=== PATIENT | male | born 1950 ===

== ENCOUNTER 2018-03-22 08:04 | Day surgery (SDC) | payer MEDICARE ==
[2018-03-20 11:54] VITALS: BMI 29.5
[2018-03-22 09:20] VITALS: RESP 20
[2018-03-22] MEDS ORDERED: Propofol 10 mg/ml Inj (20 ML) ONE (14:49)
[2018-03-22] MEDS ORDERED: Midazolam 2 MG/2 ML VIAL ONE ×3 (14:49→15:17)
[2018-03-22] MEDS ORDERED: HYDROmorphone 0.5 mg/0.5 ml ISec IVP PRN (15:31)
[2018-03-22] MEDS ORDERED: Oxycodone/Acetaminophen 5/325 mg Tab PO PRN (15:35)
[2018-03-22] MEDS ORDERED: Sodium Chloride 0.9% 1,000 ML IV SCH (15:45)
[2018-03-22] MEDS ORDERED: Gentamicin IV 80mg/50ml NS(PREMIX) IVPB ONE (16:30)
[2018-03-22 17:30] VITALS: BP 145/87; PULSE 81; TEMP 97.6; O2SAT 94
--- NOTE | 2018-05-01 09:18 | PN ---
DATE: 03/22/2018 IMMEDIATE POSTOP NOTE PREOPERATIVE DIAGNOSES: Elevated prostate surface antigen, voiding dysfunction, nocturia, irritative and obstructive complaints. POSTOPERATIVE DIAGNOSES: Elevated prostate surface antigen, voiding dysfunction, nocturia, irritative and obstructive complaints. PROCEDURE: Ultrasound of the prostate and guided biopsy. The patient is currently in the Recovery Room in stable condition. There were no complications. Blood loss was noted, minimal. The patient tolerated the procedure without complication. The plan is outpatient followup and office visit, on antibiotic use. . Kristopher Angel MD
--- NOTE | 2018-05-01 18:44 | HP ---
UROLOGY ADMISSION HISTORY AND PHYSICAL ASON FOR ADMISSION: Elevated PSA and voiding dysfunction. HISTORY OF PRESENT ILLNESS: A very pleasant gentleman, 67-year-old. He has voiding dysfunction. He has decreased force of stream, nocturia, irritative and obstructive urinary complaints, and elevated PSA. Today, he is here for an ultrasound of prostate with an ultrasound-guided prostate biopsy. Further plans afterwards will follow depending on what we find clinically. PAST MEDICAL HISTORY AND PAST SURGICAL HISTORY: As listed on the chart. No history of an NV or CVA. SOCIAL HISTORY: He lives with his . Otherwise unremarkable. REVIEW OF SYSTEMS: Listed above, otherwise noncontributory. MEDICATIONS: See chart. ALLERGIES: . PHYSICAL EXAMINATION: GENERAL: A well-nourished male, in no apparent distress. VITAL SIGNS: Within normal limits. LUNGS: Clear. HEART: S1, S2. ABDOMEN: Soft, nontender. LYMPHATIC: No cervical or axillary lymphadenopathy. GENITOURINARY: Normal phallus without discharge. No testicular masses. RECTAL: A 30 g prostate, soft and smooth. LABORATORY DATA: See chart. DIAGNOSES: Elevated prostate-specific antigen, voiding dysfunction, irritative and obstructive urinary complaints today. PLAN: This is a very pleasant 67-year-old gentleman. We will give antibiotic prophylaxis. We will do an ultrasound of prostate and ultrasound-guided prostate biopsy. Further diagnostic studies will need to be performed as well. We discussed with the patient at length risks and benefits of the treatment and risks and benefits of nontreatment. Location of treatment, everything is discussed with the patient at length. Kristopher Angel MD
--- NOTE | 2018-05-02 07:06 | OP ---
PROCEDURE DATE: 03/22/2018 UROLOGY OPERATIVE NOTE PREOPERATIVE DIAGNOSES: Elevated prostate-specific antigen, voiding dysfunction, nocturia, decreased force of stream, irritative and obstructive complaint. POSTOPERATIVE DIAGNOSES: Elevated prostate-specific antigen, voiding dysfunction, nocturia, decreased force of stream, irritative and obstructive complaint. PROCEDURE: Ultrasound of the prostate and ultrasound-guided prostate biopsy. SURGEON: Kristopher Angel MD. COMPLICATIONS: None. INDICATIONS: See the history and physical for further details. This is a very pleasant gentleman. We discussed the options. He is here now today for the above-listed procedures. He is 67 years old with both elevated PSA and voiding dysfunction. FINDINGS: 1. No specific abnormalities. No hypoechoic lesions. No abnormalities detected. 2. Rectal exam within normal limits. Ultrasound within normal limits. DESCRIPTION OF PROCEDURE: After obtaining informed consent, the patient was placed on the table. Routine monitor was placed. Time-out was called to confirm the patient and positioning. With the patient in the decubitus position, we inserted the probe via the rectum. We took pictures on multiple planes. The prostate volume measured to be 30 and you could see the multiple pictures that we took of the apex, the mid, and the base. We took pictures of the seminal vesicle. All are within normal limits by ultrasound criteria. For now, we are going to do random biopsy left base, left mid, left apex, right base, right mid, right apex, two in each area, lateral mid, lateral mid, lateral medial, lateral medial, lateral medial. So, a total of 12 cores. The patient tolerated the procedure without complications. Post biopsy, rectal exam within normal limits. Kristopher Angel MD
== END 2018-03-22 16:15 | disposition home or self-care (01) ==
LOC: SDS 08:04
PROVIDERS: ATTEND Urology
DX: C61 Malignant neoplasm of prostate (principal)
CPT/HCPCS: 55700; 88305; J1170; J1580 ×2; J2250; J2704; J2765; J3010; J7040; J7120

== ENCOUNTER 2018-03-23 13:35 | Emergency (ER) | payer MEDICARE ==
[2018-03-23 13:38] VITALS: BMI 29.5
[2018-03-23] MEDS ORDERED: Sodium Chloride 0.9% 1,000 ML IV STA (14:05)
--- NOTE | 2018-03-23 14:09 | ED PDOC ---
Arrival/HPI - General Chief Complaint: Male Genitourinary Time Seen by Provider: 03/23/18 14:00 Historian: Patient, Spouse - History of Present Illness Narrative History of Present Illness (Text): 03/23/18 14:10 pt p/w + < 1 day onset of urinary frequency/hesitancy/hematuria; pt s/p prostate biposy yesterday by Dr Angel and pt was discharged home yesterday with ability to urinate without any problems; pt states hematuria promptly began and pt experienced worsening urinary frequency/hesistancy since midnight this morning; pt states suprapubic cramps/pain; pt states no fever/chills/sweats , no cp/sob/palpitations, no upper abd pain, no n/v, no numbness/tingling, no bowel changes, no fall/trauma/sick contact, no travel; pt denied LOC. pt is here for further eval pt's without other complaints. PCP: [facility]: Dr Angel Time/Duration: Other (< 24hours) Symptom Onset: Sudden Symptom Course: Unchanged Quality: Tightness, Cramping Severity Level: 8, Severe Activities at Onset: Rest Context: Home Past Medical History - Provider Review Nursing Documentation Reviewed: Yes - Travel History Have you recently traveled outside [place] w/in the past 3 mons?: No - Past History Past History: No Previous - Infectious Disease Hx of Infectious Diseases: None - Cardiac Hx Pacemaker: No - Neurological Hx Paralysis: No - Hematological/Oncological Hx Blood Transfusions: No ([facility] WITNESS- NO BLOOD) - Musculoskeletal/Rheumatological Hx Musculoskeletal Disorders: No - Psychiatric Hx Substance Use: No - Anesthesia Hx Anesthesia Reactions: No Hx Malignant Hyperthermia: No Family/Social History - Physician Review Nursing Documentation Reviewed: Yes Family/Social History: Unknown Family HX Smoking Status: Never Smoked Hx Alcohol Use: Yes (ON OCCASION) Hx Substance Use: No Hx Substance Use Treatment: No Allergies/Home Meds Allergies/Adverse Reactions: Allergies No Known Allergies Allergy (Verified 03/23/18 13:58) Home Medications: Home Meds Medication Instructions Recorded Confirmed Tamsulosin [Flomax] 0.4 mg PO DAILY 03/20/18 03/23/18 amLODIPine [Norvasc] 5 mg PO DAILY 03/20/18 03/23/18 Atorvastatin [Lipitor] 10 mg PO DAILY 03/23/18 03/23/18 Review of Systems - Review of Systems Constitutional: Normal Eyes: Normal ENT: Normal Respiratory: Normal Cardiovascular: Normal Gastrointestinal: Other (suprapubic cramps/pain). absent: Abdominal Pain, Nausea, Vomiting Genitourinary Male: Frequency, Hematuria, Urinary Output Changes. absent: Normal Musculoskeletal: Normal. absent: Back Pain, Neck Pain Skin: Normal Neurological: Normal Endocrine: Normal Hemo/Lymphatic: Normal Psychiatric: Normal Physical Exam Vital Signs Reviewed: Yes Vital Signs Temp Pulse Resp BP Pulse Ox 03/23/18 16:08 81 18 147/77 100 03/23/18 14:01 98.5 F 96 H 18 147/85 99 Temperature: Afebrile Blood Pressure: Hypertensive (mild) Pulse: Regular Respiratory Rate: Normal Appearance: Positive for: Well-Appearing, Non-Toxic, Uncomfortable, Other (alert /awake, GCS = 15, oriented x 3, Uncomfortable, resting in bed, NAD, cooperative) Pain Distress: None Mental Status: Positive for: Alert and Oriented X 3 - Systems Exam Head: Present: Atraumatic, Normocephalic Pupils: Present: PERRL, Other (no nystagmus, no photophobia, scleral anicteric, visual field intact b/l) Extroacular Muscles: Present: EOMI Conjunctiva: Present: Normal Ears: Present: Normal Mouth: Present: Moist Mucous Membranes, Normal Teeth, Other (WNL, no dysphonia, no drooling/stridor) Pharnyx: Present: Normal Nose (External): Present: Atraumatic Nose (Internal): Present: Normal Inspection Neck: Present: Normal Range of Motion, Trachea Midline, Other (intact ROM, no menigneal signs, no nuchal rigidity, no step off). No: Meningeal Signs, MIDLINE TENDERNESS, Paraspinal Tenderness Respiratory/Chest: Present: Clear to Auscultation, Good Air Exchange, Other ( CTA b/l, no w/r/r). No: Respiratory Distress, Accessory Muscle Use Cardiovascular: Present: Regular Rate and Rhythm, Normal S1, S2. No: Murmurs Abdomen: Present: Tenderness (+ suprapubic fullness/tenderness on exam), Normal Bowel Sounds, Other (well nourished male, no tidwell's sign, no mcburney's point tenderness, no masses/rebound/guarding/rigidity, suprapubic distention noted on exam). No: Distention, Peritoneal Signs Back: Present: Normal Inspection. No: CVA Tenderness, Midline Tenderness Upper Extremity: Present: Normal Inspection, Normal ROM, NORMAL PULSES, Neurovascularly Intact, Capillary Refill < 2s. No: Cyanosis, Edema Lower Extremity: Present: Normal Inspection, NORMAL PULSES, Normal ROM, Neurovascularly Intact, Capillary Refill < 2 s. No: Edema, Deformity Neurological: Present: GCS=15, CN II-XII Intact, Speech Normal Skin: Present: Warm, Dry, Normal Color, Other (cap refill < 1sec, no ulcerations , no petechiae). No: Rashes, Pale Psychiatric: Present: Alert, Oriented x 3, Normal Insight, Normal Concentration Medical Decision Making ED Course and Treatment: 03/23/18 14:20 Impression: urinary hesistancy, hematuria i have consider all the differential diagnosis regarding pt's chief medical complaints/clinical findings, including but are not limited to: r/o urinary retention, hematuria A/P: r/o urinary retention, hematuria - labs - iv - likely muñoz - supportive care - observe/reevaluation Progress Notes: 03/23/18 14:45 Dr. Angel contacted me regarding his patient. He is in agreement with either having an ultrasound or not having an ultrasound. Requests that if the patient receives a Muñoz catheter, to contact him regarding the patient's status. 03/23/18 15:09 bladder scan ~ 500ml, will recommend muñoz cath placement 03/23/18 16:00 placement of muñoz cath - removed ~ 600 cc of bloody urine (cranberry colored) pt felt immediate improvement pt is comfortable and resting in bed abd re-exam: soft/nd/nt, no masses/rebound/guarding/rigidity, no distentions noted, no tidwell's sign, no mcburney's point tenderness [address] Angel, fidel hall, agrees with ED mgt/txt, agrees with abx, and pt can f/u with him in the office likely next week pt/family are made aware of pt's medical results pt is encouraged fluid hydration pt will f/u as directed pt will be discharged home Re-evaluation Time: 16:20 Reassessment Condition: Improved - Lab Interpretations Lab Results: 03/23/18 14:48 03/23/18 14:48 Lab Results 03/23/18 15:29: Urine Color Light red, Urine Appearance Sl cloudy, Urine pH 6.0 , Ur Specific [place] <= 1.005, Urine Protein 100 H, Urine Glucose (UA) Negative , Urine Ketones Negative, Urine Blood Large H, Urine Nitrate Negative, Urine Bilirubin Negative, Urine Urobilinogen 0.2, Ur Leukocyte Esterase Negative, Urine RBC Tntc, Urine WBC 0 - 2, Ur Epithelial Cells 0 - 2, Urine Bacteria Few 03/23/18 14:48: Sodium 141, Potassium 4.6, Chloride 99, Carbon Dioxide 28, Anion Gap 19, BUN 21, Creatinine 1.3, Est GFR ( Amer) > 60, Est GFR (Non- Af Amer) 55, Random Glucose 120 H, Calcium 9.7, Total Bilirubin 1.0, AST 24, ALT 35, Alkaline Phosphatase 57, Total Protein 7.4, Albumin 4.4, Globulin 3.0, Albumin/Globulin Ratio 1.5 03/23/18 14:48: WBC 7.0 D, RBC 5.00, Hgb 14.0, Hct 39.3 L, MCV 78.6 L, MCH 28.0 , MCHC 35.6, RDW 14.0, Plt Count 180, MPV 10.3, Gran % 57.7, Lymph % (Auto) 30.7 , [place] % (Auto) 5.6, Eos % (Auto) 5.7 H, Baso % (Auto) 0.3, Gran # 4.01, Lymph # (Auto) 2.1, [place] # (Auto) 0.4, Eos # (Auto) 0.4, Baso # (Auto) 0.02 I have reviewed the lab results: Yes Interpretation: Abnormal lab values (+ hematuria, otherwise WNL) - Medication Orders Current Medication Orders: Discontinued Medications Sodium Chloride (Sodium Chloride 0.9%) 1,000 mls @ 999 mls/hr IV .Q1H1M STA Stop: 03/23/18 15:05 Last Admin: 03/23/18 15:42 Dose: 999 mls/hr eMAR Start Stop Document 03/23/18 15:42 [email or web address] (Rec: 03/23/18 15:42 [email or web address] [id number]) Intravenous Solution Start Date 03/23/18 Start Time 15:42 End Date 03/23/18 Levofloxacin/Dextrose (Levaquin 500mg) 500 mg in 100 mls @ 100 mls/hr IVPB STAT STA PRN Reason: Protocol Stop: 03/23/18 15:45 Last Admin: 03/23/18 15:42 Dose: 100 mls/hr eMAR Start Stop Document 03/23/18 15:42 [email or web address] (Rec: 03/23/18 15:42 [email or web address] [id number]) Intravenous Solution Start Date 03/23/18 Start Time 15:42 End Date 03/23/18 Phenazopyridine HCl (Pyridium) 100 mg PO STAT STA Stop: 03/23/18 14:16 Last Admin: 03/23/18 15:41 Dose: 100 mg Disposition/Present on Arrival - Present on Arrival Any Indicators Present on Arrival: No History of DVT/PE: No History of Uncontrolled Diabetes: No Urinary Catheter: No History of Decub. Ulcer: No History Surgical Site Infection Following: None - Disposition Have Diagnosis and Disposition been Completed?: Yes Diagnosis: Urinary retention, Hematuria Disposition: HOME/ ROUTINE Disposition Time: 16:25 Patient Plan: Discharge Patient Problems: Current Active Problems Problem Status Onset Urinary retention Acute Hematuria Acute Condition: STABLE Discharge Instructions (ExitCare): Blood in the Urine (Hematuria) in Adults, Urinary Retention, Muñoz Catheter, Male Print Language: SENEGALESE Additional Instructions: Make sure to see your doctor in 1-2 days DRINK PLENTY OF FLUIDS take your medications as prescribed RETURN TO ED IF worse pain, cant breath, persistent vomiting, high fever >101- 102 for hours, altered behavior, slurr speech, facial changes, focal weakness ( arm/leg or both), unable to urinate, heavy/persistent bleeding, passing out, chest pain, or other medical emergencies Prescriptions: Levofloxacin [Levaquin] 500 mg PO DAILY #6 tablet Referrals: Evelyn Angel MD [Staff Provider] - Follow up with primary [facility] [Outside] - Follow up with primary [facility] [Outside] - Follow up with primary [facility] [Outside] - Follow up with primary Forms: [facility] ([place]), WORK NOTE
[2018-03-23] MEDS ORDERED: levoFLOXacin 500 mg in D5W 500 MG/100 ML BAG IVPB STA (14:46)
[2018-03-23 15:12] LABS: BASO # 0.02 K/mm3 (0.0-2.0); BASO % 0.3 % (0.0-3.0); EOS # 0.4 (0.0-0.7); EOS % 5.7 % (1.5-5.0); GRAN # 4.01 (1.4-6.5); GRAN % 57.7 % (50.0-68.0); LYMPH # 2.1 (1.2-3.4); LYMPH % 30.7 % (22.0-35.0); MEAN CELL VOLUME 78.6 fl (80.0-105.0); MEAN CORPUSCULAR HGB CONC 35.6 g/dl (31.0-37.0); MEAN PLATELET VOLUME 10.3 fl (7.0-11.0); MONO # 0.4 (0.1-0.6); MONO % 5.6 % (1.0-6.0)
[2018-03-23 15:20] LABS: ALB/GLOB RATIO 1.5 (1.1-1.8); ALBUMIN 4.4 g/dL (3.0-4.8); ALT/SGPT 35 U/L (7-56); AST/SGOT 24 U/L (17-59); BLOOD UREA NITROGEN 21 mg/dL (7-21); CALCIUM 9.7 mg/dL (8.4-10.5); GFR AFRICAN-AMERICAN > 60; GFR NON-AFRICAN AMERICAN 55
[2018-03-23 15:39] LABS: URINE BILIRUBIN NEGATIVE (NEGATIVE); URINE BLOOD LARGE (NEGATIVE); URINE GLUCOSE (UA) NEGATIVE (NEGATIVE); URINE LEUKOCYTE ESTERASE NEGATIVE Leu/uL (NEGATIVE); URINE PROTEIN 100 mg/dL (<30 mg/dL); URINE UROBILINOGEN 0.2 E.U./dL (<1 E.U./dL)
[2018-03-23 16:00] LABS: URINE COLOR LIGHT RED (YELLOW)
[2018-03-23 16:03] LABS: URINE APPEARANCE SL CLOUDY (CLEAR); URINE BACTERIA FEW (NEG); URINE EPITHELIAL CELLS 0 - 2 /hpf (0-5); URINE RBC TNTC /hpf (0-2); URINE WBC 0 - 2 /hpf (0-6)
[2018-03-23 17:38] VITALS: BP 143/78; PULSE 80; RESP 19; TEMP 98.1; O2SAT 100
== END 2018-03-23 17:39 | disposition home or self-care (01) ==
LOC: ED 13:35
DX: R33.9 Retention of urine, unspecified (principal); R31.9 Hematuria, unspecified
CPT/HCPCS: 80053; 81001; 85025; 99284; J7040